=== PATIENT | female | born 1960 | race Caucasian/White ===

== ENCOUNTER 2018-09-09 18:10 | Emergency (ER) | payer OTHER ==
[~2018-09-09] VITALS: Ht 162.6 cm; Wt 67.1 kg
[2018-09-09 18:16] VITALS: Ht 162.6 cm; Wt 67.1 kg
[2018-09-09 19:23] LABS: BASOPHIL % 0.2 % (0-2); PLATELET COUNT 193 x10^3mcL (130-400); RED CELL DISTRIBUTION WIDTH 13.4 % (11.5-14.5)
[2018-09-09 19:29] LABS: CALCIUM 8.4 mg/dL (8.5-10.1); CARBON DIOXIDE 27.9 mmol/L (21-32); CHLORIDE SERUM 103 mmol/L (98-107); CREATININE SERUM 0.5 mg/dL (0.6-1.0); GFR1 > 60 mL/min; GLUCOSE SERUM 110 mg/dL (74-106); POTASSIUM SERUM 3.9 mmol/L (3.5-5.1); SODIUM SERUM 136 mmol/L (136-145)
[2018-09-09 19:33] LABS: ALBUMIN 3.5 g/dL (3.4-5.0); ALKALINE PHOSPHATASE 66 U/L (46-116); ALT/SGPT 17 U/L (14-59); AMYLASE 50 U/L (25-115); AST/SGOT 16 U/L (15-37); CHOLESTEROL 170 mg/dL (<200); LIPASE 182 IU/L (73-393); MAGNESIUM 1.8 mg/dL (1.8-2.4)
[2018-09-09 19:42] LABS: HDL CHOLESTEROL 68 mg/dL (40-60)
[2018-09-09 19:45] LABS: FREE T4 1.05 ng/dL (0.76-1.46); FREE THYROXINE INDEX 2.8 ug/dL (1.4-4.5); T4(THYROXINE) 8.4 ug/dL (4.7-13.3)
[2018-09-09 20:14] LABS: T3 TOTAL 1.07 ng/mL
[2018-09-09 21:20] LABS: UA SPECIFIC GRAVITY 1.015 (1.005-1.035); microscopic required? YES; urine erythrocyte TRACE (NEGATIVE)
[2018-09-09 22:09] VITALS: BP 134/78
== END 2018-09-09 22:09 | disposition home or self-care (01) ==
LOC: ED 18:10
PROVIDERS: Emergency Medicine
DX: R42 Dizziness and giddiness (principal); R19.7 Diarrhea, unspecified; E78.00 Pure hypercholesterolemia, unspecified; R11.10 Vomiting, unspecified; R51 Headache
CPT/HCPCS: 82962; 84439